=== PATIENT | female | born 1990 | race Hispanic/Latino ===

== ENCOUNTER 2017-07-23 10:28 | Emergency (ER) | payer SELFPAY ==
[2017-07-23] MEDS ORDERED: Lidocaine 1% (PF) 30 ML VIAL ONE (11:34)
== END 2017-07-23 12:19 | disposition home or self-care (01) ==
LOC: ERS 10:28
DX: N76.4 Abscess of vulva (principal)
CPT/HCPCS: 56405; J2001

== ENCOUNTER 2018-03-13 10:07 | Emergency (ER) | payer SELFPAY ==
--- NOTE | 2018-03-13 11:28 | RAD ---
RADIOGRAPH CHEST 2 VIEWS: Date: 03/13/2018. Time: 11:00 a.m. HISTORY: A 28-year-old female with cough, dyspnea, and fever. COMPARISON: None available. FINDINGS: There are mild, questionable streaky-patchy infiltrates at the posterior base of the left lower lobe. Cardiomediastinal silhouette is normal. The rest of the lungs are clear. No pleural effusion, pul monary edema, or pneumothorax. IMPRESSION: 1. Questionable early left lower lobe pneumonia. 2. Recommend followup. MANJINDER [] POS: MARCELO
[2018-03-13] MEDS ORDERED: Azithromycin 250 MG TAB ONE ×2 (11:32→11:35)
== END 2018-03-13 11:37 | disposition home or self-care (01) ==
LOC: ERS 10:07
DX: J18.9 Pneumonia, unspecified organism (principal)
CPT/HCPCS: 71046; 87804

== ENCOUNTER 2019-03-13 10:24 | Emergency (ER) | payer OTHER, SELFPAY | END 2019-03-13 12:35 | disposition home or self-care (01) | LOC: ERS 10:24 | DX: J02.9 Acute pharyngitis, unspecified (principal); Z79.899 Other long term (current) drug therapy | CPT/HCPCS: 87081; 87430; 99283 ==

== ENCOUNTER 2019-10-03 09:58 | Emergency (ER) | payer OTHER ==
[2019-10-04 12:48] LABS: SARS-CoV-2 MS2 Positive; SARS-CoV-2 N Gene Negative; SARS-CoV-2 S Gene Negative; SARS-CoV-2 orf1ab Negative
== END 2019-10-03 10:20 | disposition home or self-care (01) ==
LOC: ERS 09:58
DX: Z20.828 Contact with and (suspected) exposure to other viral communicable diseases (principal)
CPT/HCPCS: 87635; 99284; U0003

== ENCOUNTER 2020-02-09 12:50 | Emergency (ER) | payer OTHER, SELFPAY ==
[2020-02-09] MEDS ORDERED: traMADol HCl 50 MG TAB ONE (15:23)
== END 2020-02-09 15:44 | disposition home or self-care (01) ==
LOC: ERS 12:50
DX: K03.81 Cracked tooth (principal); K02.9 Dental caries, unspecified; K08.89 Other specified disorders of teeth and supporting structures
CPT/HCPCS: 99282

== ENCOUNTER 2020-05-27 21:56 | Emergency (ER) | payer SELFPAY ==
[2020-05-27 22:31] LABS: Mean Corpuscular HGB CONC 30.8 g/dL (32.0-36.0); Mean Corpuscular Volume 71.4 fL (78.0-98.0); Mean Platelet Volume 8.6 fL (7.4-10.4); Platelet Count 287 thou/uL (130-400); RBC Distribution Width 17.6 % (11.5-14.5); Red Blood Cell (RBC) Count 3.64 mill/uL (4.20-5.40); White Blood Cell (WBC) Count 7.4 thou/uL (4.8-10.8)
[2020-05-27 22:34] LABS: BHCG - Serum Negative (NEGATIVE); Pregs Control Background? CLEAR/WHITE (CLR/WHITE); Pregs Control Bar Appear? YES (CONTROL BAR)
[2020-05-27 22:46] LABS: #Basophils 0.1 thou/uL (0.0-0.2); #Eosinphils 0.1 thou/uL (0.0-0.7); #Lymphocytes 2.6 thou/uL (1.20-3.40); #Monocytes 0.6 thou/uL (0.11-0.59); #Neutrophils 4.1 thou/uL (1.40-6.50); %Basophils 0.9 % (0.0-1.0); %Eosinophils 1.3 % (0.0-10.0); %Lymphocytes 35.3 % (21.0-51.0); %Monocytes 7.5 % (0.0-10.0); %Neutrophils 55.1 % (42.0-75.0); Anisocytosis SLIGHT = 6-15 cells (100X) (0-5/hpf); Hypochromia SLIGHT = 6-15 cells (100X) (0-5/hpf); MDiff Complete? YES; Microcytosis SLIGHT = 6-15 cells (100X) (0-5/hpf); Platelet Morphology Comment Appears Adequate
[2020-05-27 22:48] LABS: ALT (SGPT) 12 U/L (8-55); AST (SGOT) 21 U/L (5-34); Albumin 4.4 g/dL (3.5-5.0); Alkaline Phosphatase 37 U/L (40-110); Anion Gap 12 mmol/L (10-20); BUN (Urea Nitrogen) 11 mg/dL (7.0-18.7); Bilirubin, Total 0.5 mg/dL (0.2-1.2); Calc. Creatinine Clearance 0 mL/min (70-130); Calcium 9.2 mg/dL (7.8-10.44); Carbon Dioxide 28 mmol/L (22-29); Chloride 103 mmol/L (98-107); Globulin 3.3 g/dL (2.4-3.5); Glucose 100 mg/dL (70-105); Potassium 3.7 mmol/L (3.5-5.1); Protein, Total 7.7 g/dL (6.0-8.3); Sodium 139 mmol/L (136-145)
[2020-05-28] MEDS ORDERED: Ketorolac Tromethamine 30 MG/ML VIAL ONE (01:20)
--- NOTE | 2020-05-28 08:36 | ULT ---
PRELIMINARY REPORT/[facility]/EMERGENCY AFTER HOURS PROCEDURE: EXAM: US Pelvis, Complete. CLINICAL HISTORY: Sharp pelvic pain, heavy vaginal bleeding x 1 month (on/off) TECHNIQUE: Transvaginal and transabdominal pelvic ultrasound (complete) with image documentation. COMPARISON: None provided. FINDINGS: ENDOMETRIUM: Normal thickness. UTERUS/CERVIX: Normal size and contour. No fibroid detected. RIGHT OVARY: Anechoic cyst in the right ovary measuring 2.0 x 2.0 x 1.8 cm. Normal blood flow. LEFT OVARY: Normal follicles. No adnexal mass. Normal blood flow. FREE FLUID: No free fluid. IMPRESSION: No acute sonographic pelvic abnormality. Right-sided simple ovarian cyst. ELECTRONICALLY SIGNED BY: Ricardo Navarro MD May 28, 2020 12:56:16 AM [employer] [employer] This report is intended for review by the ordering physician only, in accordance of law. If you recei ve this report in error, please call [facility] at [phone]. FINAL REPORT PELVIC ULTRASOUND: Transabdominal and endovaginal ultrasound of pelvis performed. I am in agreement with the preliminary report. POS: MASONW
== END 2020-05-28 02:52 | disposition home or self-care (01) ==
LOC: ERS 21:56
DX: N92.1 Excessive and frequent menstruation with irregular cycle (principal); D62 Acute posthemorrhagic anemia
CPT/HCPCS: 36415; 76856; 80053; 84703; 85025; 96372; J1885

== ENCOUNTER 2022-11-12 11:38 | Emergency (ER) | payer OTHER ==
[2022-11-12] MEDS ORDERED: Ibuprofen 200 MG TAB ONE (12:26)
[2022-11-12 14:12] LABS: SARS-CoV-2 NAA Rapid Test DETECTED (NotDetected)
== END 2022-11-12 12:32 | disposition home or self-care (01) ==
LOC: ERS 11:38
DX: U07.1 COVID-19 (principal); J06.9 Acute upper respiratory infection, unspecified
CPT/HCPCS: 99283

== ENCOUNTER 2023-09-21 17:16 | Emergency (ER) | payer OTHER, SELFPAY ==
[2023-09-21] MEDS ORDERED: HYDROcodone/Acetaminophen 5/325 mg Tablet ONE (18:43)
== END 2023-09-21 18:40 | disposition home or self-care (01) ==
LOC: ERS 17:16
DX: K04.7 Periapical abscess without sinus (principal)
CPT/HCPCS: 99282